=== PATIENT | female | born 2000 | race Caucasian/White ===

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

== ENCOUNTER 2022-07-19 11:17 | Emergency (ER) | payer BC, SELFPAY ==
[2022-07-19 11:26] VITALS: BP 137/84; PULSE 112; RESP 18; TEMP 37.6; O2SAT 100
--- NOTE | 2022-07-19 11:52 | ED.URI ---
HPI - URI/Sore Throat General Chief Complaint: Upper Respiratory Infection Stated Complaint: Sore Throat Time Seen by Provider: 07/19/22 11:52 Source: patient Mode of arrival: ambulatory Limitations: no limitations History of Present Illness HPI Narrative: 22-year-old female presents with complaint of Cough, chest congestion,sore throat, fatigue, fever, swollen lymph nodes for 5-6 days. Reports progressively getting worse. Patient is tearful. Denies nausea vomiting diarrhea. No chest pain or shortness of breath. All systems reviewed and negative except as noted above. Related Data Allergies Allergy/AdvReac Type Severity Reaction Status Date / Time brompheniramine Allergy Mild Hives Unverified 07/19/22 11:38 dextromethorphan Allergy Mild Hives Unverified 07/19/22 11:38 phenylpropanolamine Allergy Mild Hives Unverified 07/19/22 11:38 pseudoephedrine Allergy Mild Hives Unverified 07/19/22 11:38 MOTRIN NON DYE Allergy Mild Hives Uncoded 07/19/22 11:38 Review of Systems Review of Systems: CONSTITUTIONAL: reports fever, chills, or sweats. reports fatigue EYES: Denies visual changes, redness, or discharge. ENT: reports rhinorrhea, congestion, sore throat. Denies otalgia. CARDIOVASCULAR: Denies chest pain, palpitations, or edema. RESPIRATORY: reports cough. Denies dyspnea. GASTROINTESTINAL: Denies abdominal pain, nausea, vomiting, or diarrhea. GENITOURINARY: Denies dysuria or hematuria. SKIN: Denies rash or itching. MUSCULOSKELETAL: Denies back pain, joint pain, or myalgia. NEUROLOGIC: Denies headache, numbness, or weakness. PSYCHIATRIC: Denies anxiety or depression. All other systems reviewed are negative, except as documented in HPI. PMFSH Comments At time of signature, agree with nursing past medical, surgical, social and family history. There is no relevant family history pertinent to the presenting complaint. Exam Narrative: GENERAL: This is a well-nourished, well-developed patient, in no apparent distress. HEAD: normocephalic, atraumatic. EYES: PERRL. Sclera clear/white. Vision is grossly intact. EARS: External ears normal, auditory canals clear and without drainage, TMs normal without perforation. Hearing grossly intact. NOSE: External nose normal with clear nasal drainage, mild congestion. THROAT: Mucous membranes moist, Erythematous, swollen tonsils 1+ bilaterally with exudate. NECK: Neck supple, non-tender without lymphadenopathy, masses or thyromegaly. CARDIOVASCULAR: Regular rate and rhythm without murmurs, gallops, or rubs. RESPIRATORY: Clear to auscultation. Breath sounds equal bilaterally. No wheezes, rales, or rhonchi. SKIN: warm, Dry, intact with no suspicious lesions or rash, good texture and turgor. NEURO: awake, alert, and oriented to person, place and time. There were no obvious focal neurologic abnormalities. EXTREMITIES: No joint tenderness, effusion, or edema noted. Course Course Level of Care: Express Care Visit Vital Signs Vital signs: Vital Signs Temperature 37.6 C H 07/19/22 11:26 Pulse Rate 112 H 07/19/22 11:26 Respiratory Rate 18 07/19/22 11:26 Blood Pressure 137/84 07/19/22 11:26 Pulse Oximetry 100 07/19/22 11:26 Oxygen Delivery Room Air 07/19/22 11:26 Temperature 37.6 C H 07/19/22 11:26 Pulse Rate 112 H 07/19/22 11:26 Respiratory Rate 18 07/19/22 11:26 Blood Pressure 137/84 07/19/22 11:26 Pulse Oximetry 100 07/19/22 11:26 Oxygen Delivery Room Air 07/19/22 11:26 reviewed MDM - URI/Sore Throat MDM Narrative Medical decision making narrative: Patient is aware of diagnosis, understands and agrees to treatment plan. Anticipatory guidance given. Patient agrees to follow-up as directed and is aware of reasons to seek care at the emergency department. Portions of this record may have been created with voice recognition software negative strep, influenza, COVID and mono test today. Will treat patient with aim oxacillin due to exam
== END 2022-07-19 12:29 | disposition home or self-care (01) ==
PROVIDERS: Emergency Provider Nurse Practitioner Family
DX: J02.9 Acute pharyngitis, unspecified (principal); Z20.822 Contact with and (suspected) exposure to COVID-19
CPT/HCPCS: 36416; 86308; 87081; 87426; 87804; 87880; 99213; C9803; G0463

== ENCOUNTER 2022-07-22 12:06 | Emergency (ER) | payer BC, SELFPAY ==
[2022-07-22 13:30] VITALS: BP 131/92; PULSE 113; RESP 18; TEMP 36.9; O2SAT 97
--- NOTE | 2022-07-22 14:32 | ED.URI ---
HPI - URI/Sore Throat General Chief Complaint: Upper Respiratory Infection Stated Complaint: Sore Throat Time Seen by Provider: 07/22/22 12:08 Source: patient and family (mother) Mode of arrival: ambulatory Limitations: no limitations History of Present Illness HPI Narrative: 22-year-old female presents to [facility] accompanied by her mother for complaints of sore throat, bilateral ear pressure reports difficulty swallowing at times for the past 5 days. Patient was evaluated here 3 days ago, diagnosed with acute pharyngitis and was prescribed a Medrol Dosepak amoxicillin, benzonatate and Mucinex. Patient reports that she feels that her symptoms are improving but her throat remains painful and wants to ensure nothing else needs to be done at this time. Patient is a nonsmoker. Patient denies sick contacts. Patient denies recent travel. Patient reports that she also is taking [id number] Tylenol at times. Throat culture (-) that was completed on 07/19/2022. MD elicited complaint: sore throat Onset (ago): day(s) (5) Consistency: constant Severity: mild Able to tolerate fluids by mouth: Yes Related Data Allergies Allergy/AdvReac Type Severity Reaction Status Date / Time brompheniramine Allergy Mild Hives Verified 07/22/22 13:36 dextromethorphan Allergy Mild Hives Verified 07/22/22 13:36 phenylpropanolamine Allergy Mild Hives Verified 07/22/22 13:36 pseudoephedrine Allergy Mild Hives Verified 07/22/22 13:36 MOTRIN NON DYE Allergy Mild Hives Uncoded 07/22/22 13:36 Review of Systems Constitutional: Constitutional: Reports chills, Denies fatigue, Denies fever(s) and Denies weakness ENT: Denies nasal congestion and Reports sore throat Comments: Bilateral ear pressure Cardiovascular: Cardiovascular: Denies chest pain, Denies rapid heart rate, Denies radiating jaw, neck or arm pain and Denies slow heart rate Respiratory: Respiratory: Denies cough, Denies dyspnea and Denies wheezing Gastrointestinal: Gastrointestinal: Denies abdominal pain, Denies diarrhea, Denies nausea and Denies vomiting Integumentary/Breasts: Skin/Breast: Denies rash Allergic/Immunologic: Allergic/Immunologic: Denies lip swelling, Denies throat swelling and Denies tongue swelling PMFSH Comments At time of signature, I agree with nursing past medical, surgical, social and family history. There is no relevant family history pertinent to the presenting complaint. Exam Const: General: healthy appearing Nutritional Appearance: well nourished Orientation/consciousness: patient oriented x3 Limitations: no limitations HENMT: Head: normal to inspection Ears: EAC's normal and TM abnormal wth effusion serous on the right Face/Nose/Sinus: Normal nares present Mouth: Yes lip normal and Yes moist mucous membranes Teeth and gingiva: dentition normal Throat: uvula midline Other: 2+ swelling and erythema noted bilateral tonsils, there is no peritonsillar abscess noted. Uvula is midline and no shift is noted. Neck: Neck: normal visual inspection Resp: Effort & Inspection: normal respiratory effort Auscultation: clear to auscultation bilaterally, no crackles, no rales, no rhonchi and no wheezes Cardio: Rate: regular rate Rhythm: regular rhythm Heart sounds: no murmurs Skin: General skin exam: normal color Rashes: no rashes Wounds: no wounds Neuro: General: patient oriented x3 Speech: normal speech Gait exam (Neuro): Normal gait present Psych: Affect: normal affect Attitude: cooperative Course Course Level of Care: Express Care Visit Vital Signs Vital signs: Vital Signs Temperature 36.9 C 07/22/22 13:30 Pulse Rate 113 H 07/22/22 13:30 Respiratory Rate 18 07/22/22 13:30 Blood Pressure 131/92 H 07/22/22 13:30 Pulse Oximetry 97 07/22/22 13:30 Oxygen Delivery Room Air 07/22/22 13:30 Temperature 36.9 C 07/22/22 13:30 Pulse Rate 113 H 07/22/22 13:30 Respiratory Rate 18 07/22/22 13:30 Blood Pressure 131/92 H 07/04
[2022-07-22 15:00] VITALS: BP 129/80; PULSE 91; RESP 16
== END 2022-07-22 15:00 | disposition home or self-care (01) ==
PROVIDERS: Emergency Provider Nurse Practitioner Family
DX: J02.9 Acute pharyngitis, unspecified (principal)
CPT/HCPCS: 87081; 87880; 99213; G0463

== ENCOUNTER 2022-11-02 13:01 | Outpatient (CLI) | payer BC, SELFPAY ==
--- NOTE | ~2022-11-02 | XR_ITS ---
EXAMINATION: XR barium swallow DATE: 11/02/2022 13:32 INDICATION: Dysphagia, unspecified. TECHNIQUE: The patient drank thick barium, gas-producing crystals, and thin barium. Fluoroscopy of th e hypopharynx and esophagus was performed. Fluoroscopy exposure time was 2.3 minutes. The total numbe r of images was 199. The dose-area product was 1.304 Gy-cm^2. COMPARISON: None. FINDINGS: There is no mass or stricture of the esophagus. Esophageal motility is normal. There is no hiatal hernia. There was no gastroesophageal reflux with provocative maneuvers. IMPRESSION: 1. Normal esophagram. Reviewed, dictated and finalized at location A. [employer] MACHINE [employer]ER IMPRESSION: 1. Normal esophagram.
== END 2022-11-02 13:02 | disposition home or self-care (01) ==
PROVIDERS: PCP Family Medicine; Visit Provider Physician Assistant Medical
DX: R13.10 Dysphagia, unspecified (principal)
CPT/HCPCS: 74220

== ENCOUNTER 2022-12-17 00:54 | Day surgery (SDC) | payer BC, SELFPAY ==
[2022-12-03 15:47] VITALS: BMI 42.5
[2022-12-17 11:40] VITALS: BP 134/80; PULSE 104; RESP 16; TEMP 36.2; O2SAT 100
--- NOTE | 2022-12-17 11:45 | WPDHPUPDATE1 ---
History and Physical Update Update Date/Time: 12/17/22 11:45 History and Physical has been reviewed, including an updated exam of the patient. There are NO changes in the patient's condition. Risks, benefits, and alternatives have been discussed and questions answered. Patient agrees to proceed with procedure.
[2022-12-17] MEDS: LACTATED RINGERS 1,000 ML 150 ML IV CONT (11:51)
--- NOTE | 2022-12-17 12:26 | WPDANESEPPF ---
Anes - Initial Pre Proc Eval Procedure: Operation Date: 12/17/22 13:00 Proposed Procedures p Esophagogastroduodenoscopy - Wilfred Cardoza MD Date/Time: 12/17/22 12:26 Surgeon: Wilfred Cardoza MD Pre Op Diagnosis: cough & vomiting Patient Data Age: 22 Gender: F Height: 1.55 m Weight: 100.8 kg Last Vital Signs Temp 97.2 F L 12/17/22 11:40 Pulse 104 H 12/17/22 11:40 Resp 16 12/17/22 11:40 BP 134/80 12/17/22 11:40 Pulse Ox 100 12/17/22 11:40 O2 Del Method Room Air 12/17/22 11:40 Allergies Allergy/AdvReac Type Severity Reaction Status Date / Time brompheniramine Allergy Mild Hives Verified 12/17/22 11:38 dextromethorphan Allergy Mild Hives Verified 12/17/22 11:38 phenylpropanolamine Allergy Mild Hives Verified 12/17/22 11:38 pseudoephedrine Allergy Mild Hives Verified 12/17/22 11:38 MOTRIN NON DYE Allergy Mild Hives Uncoded 12/17/22 11:38 Home Medications Medication Instructions Recorded Confirmed Type drospirenone (contraceptive) 4 mg 1 tablet PO DAILY 10/19/22 12/17/22 History (28) tablet (Slynd) omeprazole 40 mg capsule,delayed 40 mg PO DAILY #30 caps 11/19/22 12/17/22 Rx release Patient hx anesthesia problems: none Family hx anesthesia problems: none Results Review: All pre-operative results and documents have been reviewed as part of the pre-operative evaluation. [facility] Past Medical History Medical History (Updated 11/19/22 @ 11:24 by Lisa Marin APRN) Cough Obesity Vomiting Family History Family History Mother Carcinoma of colon, Onset Age: 60 Grandparent Diabetes mellitus Hypertension Cerebrovascular accident Father Melanoma Social History Social History Smoking status: Current every day smoker Tobacco type: e-cigarettes/vaping Alcohol intake: current Alcohol use details: seldom; socially Substance use: never Substance use type: does not use Lack of Transportation: No Lack of Food: Never True Current Housing: I Have Housing Concerned About Future Housing: No Difficulty Paying Gas/Electric Bills: No Difficulty Paying for Meds: No Currently Unemployed: No Education: High School Diploma/GED Difficulty w/ Childcare or Family Care: No Living arrangements: with family Occupation/Education: student Spiritual care concerns: No Anes - Eval Final PreProcedure Day of Procedure 12/17/22 12:26 Patient weight: morbidly obese Heart: regular rate and rhythm Lungs: clear to auscultation Airway: Mallampati scale class II Neurological: alert and oriented Last oral intake: >/= 8 hours ASA classification: III Emergent: no Anesthetic plan: proceed Anesthesia type and monitoring: general GIVS and standard monitoring Results Review: All pre-operative results and documents have been reviewed as part of the pre-operative evaluation. Informed Consent: The patient's anesthetic plan and its attendant risks and benefits were discussed with the patient/family/POA. Questions were solicited and answers provided to the satisfaction of the patient/family/POA.
[2022-12-17 13:01] VITALS: BP 117/72; PULSE 82; RESP 19; O2SAT 100
[2022-12-17 13:11] VITALS: BP 118/75; PULSE 64; RESP 20; O2SAT 100
[2022-12-17 13:21] VITALS: BP 123/76; PULSE 66; RESP 23; O2SAT 100
== END 2022-12-17 13:35 | disposition home or self-care (01) ==
PROVIDERS: PCP Family Medicine; Visit Provider Internal Medicine Gastroenterology
PROC: 0DJ08ZZ Inspection of Upper Intestinal Tract, Via Natural or Artificial Opening Endoscopic (ICD-10-PCS; CPT 43235; principal; 2022-12-17 13:00)
DX: R05.9 Cough, unspecified (principal); R11.10 Vomiting, unspecified; F17.290 Nicotine dependence, other tobacco product, uncomplicated; E66.01 Morbid (severe) obesity due to excess calories; Z68.41 Body mass index [BMI] 40.0-44.9, adult
CPT/HCPCS: 43239; 87081; J2704; J7120

== ENCOUNTER → 2023-03-01 11:17 | Outpatient (CLI) | payer BC, SELFPAY ==
--- NOTE | ~2023-03-01 | XR_ITS ---
Clinical Indication: Cough PA and lateral views of the chest: Comparison: None Findings: The lungs are clear, without evidence of focal consolidation or pleural effusion. Cardiome diastinal silhouette is within normal limits. Bones and soft tissues are unremarkable. Impression: Normal chest. Reviewed, dictated and finalized at location . Impression: Normal chest.
== END ==
PROVIDERS: PCP Physician Assistant Medical; Visit Provider Physician Assistant Medical
DX: R05.3 Chronic cough (principal)
CPT/HCPCS: 71046